=== PATIENT | female | born 1950 | race Caucasian/White ===

== ENCOUNTER 2020-06-02 06:54 | Observation (INO) | payer MEDICARE, OTHER ==
[~2020-06-02 06:54] MED LIST: Lidocaine 1%/Sod Bicarbonate in NS 8.4% 1 ML Syringe IDERM PRN; Sodium Chloride 0.9% 10 ML Syringe FLUSH PRN
[2020-06-02] MEDS ORDERED: Lidocaine 1% 4 ML ONE (07:04)
[2020-06-02] MEDS ORDERED: Propofol 200 MG/20 ML SDV ONE (07:04)
[2020-06-02] MEDS ORDERED: Rocuronium 50 MG/5 ML Vial ONE (07:06)
[2020-06-02] MEDS ORDERED: fentaNYL 250 MCG/5 ML SDV ONE (07:08)
[2020-06-02] MEDS ORDERED: Midazolam 1 MG/ML 2 ML SDV ONE (07:09)
[2020-06-02] MEDS ORDERED: Bupivacaine 0.5%/EPINEPHrine 1:200,000 50 ML MDV ONE (07:12)
[2020-06-02] MEDS ORDERED: ceFAZolin 1 GM Vial ONE (07:14)
[2020-06-02] MEDS: Lactated Ringers 1,000 ML IV SCH ×3 (07:20→18:28)
--- NOTE | 2020-06-02 07:33 | PCM.PREANE ---
Preanesthetic Assessment - Anesthesia/Transfusion/Family Hx Anesthesia History: Prior Anesthesia Reaction (ZOË) Family History of Anesthesia Reaction: No Transfusion History: No Prior Transfusion(s) - Review of Systems General: No Symptoms Pulmonary: No Symptoms Cardiovascular: No Symptoms Gastrointestinal: No Symptoms Neurological: No Symptoms Other: Reports: None - Physical Assessment NPO Status Date: 06/01/20 NPO Status Time: 22:30 ASA Class: 2 Mental Status: Alert & Oriented x3 Airway Class: Mallampati = 1 Dentition: Reports: Normal Dentition Thyro-Mental Finger Breadths: 3 Mouth Opening Finger Breadths: 3 ROM/Head Extension: Full Lungs: Clear to Auscultation, Normal Respiratory Effort Cardiovascular: Regular Rate, Regular Rhythm - Allergies Allergies/Adverse Reactions: Allergies Allergy/AdvReac Type Severity Reaction Status Date / Time No Known Allergies Allergy Verified 06/01/20 14:11 - Acknowledgements Anesthesia Type Planned: General Anesthesia Pt an Appropriate Candidate for the Planned Anesthesia: Yes Alternatives and Risks of Anesthesia Discussed w Pt/Guardian: Yes Pt/Guardian Understands and Agrees with Anesthesia Plan: Yes PreAnesthesia Questionnaire HEENT History: Reports: Allergic Rhinitis Cardiovascular History: Reports: High Cholesterol Respiratory History: Reports: Asthma, Sleep Apnea (CPAP) Psychiatric History: Reports: Depression Other Hematologic History: hx hep c - Past Surgical History GI Surgical History: Reports: Appendectomy Female Surgical History: Reports: D&C - SUBSTANCE USE Smoking Status *Q: Former Smoker Recreational Drug Use History: No - HOME MEDS Home Medications: Home Meds Cholecalciferol (Vitamin D3) [Vitamin D] 1 tab PO DAILY 06/01/20 [History] Horse [place] Seed [Horse [place]] 1 cap PO DAILY 06/01/20 [History] Milk Thistle 1 tab PO DAILY 06/01/20 [History] Rosuvastatin [Crestor] 5 mg PO DAILY 06/01/20 [History] Vit A/C/E/Zinc/Selenium/Copper [Vision Formula Tablet] 1 tab PO DAILY 06/01/20 [History] buPROPion HCL [Wellbutrin Xl] 150 mg PO DAILY 06/01/20 [History] - CURRENT (IN HOUSE) MEDS Current Meds: Current Medications Lactated Ringer's (Ringers, Lactated) 1,000 mls @ 125 mls/hr IV ASDIRECTED ROD Stop: 06/02/20 23:00 Lidocaine/Sodium Bicarbonate (Buffered Lidocaine 1% In Ns 8.4%) 0.25 ml IDERM ONETIME PRN PRN Reason: Prior to IV Start Stop: 06/02/20 18:00 Sodium Chloride (Saline Flush) 10 ml FLUSH ASDIRECTED PRN PRN Reason: Keep Vein Open Stop: 06/02/20 18:00 Discontinued Medications Bupivacaine HCl/Epinephrine Bitart (Marcaine 0.5%/Epinephrine 1:200,000) Confirm Administered Dose 50 ml .ROUTE .STK-MED ONE Stop: 06/02/20 07:13 Cefazolin Sodium (Ancef) Confirm Administered Dose 2 gm .ROUTE .STK-MED ONE Stop: 06/02/20 07:15 Fentanyl (Sublimaze) Confirm Administered Dose 250 mcg .ROUTE .STK-MED ONE Stop: 06/02/20 07:09 Lidocaine HCl (Xylocaine-Mpf 1%) Confirm Administered Dose 4 mls @ as directed .ROUTE .STK-MED ONE Stop: 06/02/20 07:05 Midazolam HCl (Versed 1 Mg/Ml) Confirm Administered Dose 2 mg .ROUTE .STK-MED ONE Stop: 06/02/20 07:10 Propofol (Diprivan 20 Ml) Confirm Administered Dose 200 mg .ROUTE .STK-MED ONE Stop: 06/02/20 07:05 Rocuronium [place] (Zemuron) Confirm Administered Dose 50 mg .ROUTE .STK-MED ONE Stop: 06/02/20 07:07
[2020-06-02] MEDS ORDERED: Ondansetron 4 MG/2 ML SDV ONE (07:50)
[2020-06-02] MEDS ORDERED: HYDROmorphone 1 MG/ML Syringe ONE (08:27)
[2020-06-02] MEDS ORDERED: fentaNYL 100 MCG/2 ML SDV IVPUSH PRN (08:39)
[2020-06-02] MEDS ORDERED: Ondansetron 4 MG/2 ML SDV IVPUSH PRN (08:39)
[2020-06-02] MEDS ORDERED: oxyCODONE 5 MG Tab PO PRN (09:25)
--- NOTE | 2020-06-02 09:38 | PCM.PRNOTE ---
- Free Text/Narrative Note: Operative Report Operation: laparoscopic cholecystectomy Date: 06/02/2020 Attending Surgeon: Devon Odom MD Indication for Surgery: symptomatic cholelithiasis Preoperative antibiotics: 2 g Ancef IV VTE prophylaxis: SCDs Estimated Blood Loss: 50 cc Findings: mild chronic inflammation. Critical view of safety obtained. There appeared to be a small bile leak at the gallbladder fossa as the gallbladder was taken off the liver. The gallbladder ruptured and bile was spilled during dissection. The field was thoroughly irrigated and suctioned, and surgicel and flowseal were placed at the fossa. A 10 F CHADWICK drain was left in the dissection bed as well. Detailed Report: The patient underwent general endotracheal anesthesia after being placed supine on the operating table and initial timeout. The abdomen was prepped and draped in sterile fashion. A pre-incision timeout was performed confirming the patients identity and the operation to be performed. A Veress needle was inserted into the abdominal cavity below the left costal margin along the mid- clavicular line. The abdomen was insufflated with CO2 to 15 mm Hg. Gas was aspirated below the umbilicus with a syringe in order to ensure safe placement of a 5 mm bladed laparoscopic port. The 5mm 30 degree laparoscope was then inserted and viscera inspected. Two additional 5 mm ports were placed along the right subcostal region under direct vision with the laparoscope, and a 12 mm port was placed at the subxiphoid region. The gallbladder was grasped at the fundus with a locking grasper and retracted anteriorly and superiorly, exposing the infundibulum. An additional 5 mm port was placed to help hold the omentum out of view. The gallbladder appeared to be large with some chronic inflammatory change. The infundibulum was grasped with the surgeons left hand grasper and retracted laterally. The hook electrode was used to open the overlying periton eum, and this plane of dissection was developed along the edges of the gallbladder at its interface with the liver bed. A combination of hook electrode, blunt dissection with the suction hat band attacher and the [place] grasper were used to carefully expose and skeletonize the cystic duct and artery. A critical view of safety was obtained. Hemolock clips were then placed on both structures. The duct and artery were transected with laparoscopic scissors between the hemolock clips. The hook was then used to dissect the gallbladder free from its attachment to the liver. This part of dissection was challenging as the gallbladder was partially intrahepatic. A small bile leak was noted from the fossa; this did not appear to be associated with a major duct. The gallbladder ruptured at the mid body during dissection and thick, dark bile was spilled. Once the gallbladder was detached, the specimen was then placed in an Endocatch bag and removed through the subxiphoid port. The liver bed thoroughly irrigated and suctioned. Monopolar was used to achieve hemostasis at sites of hemorrhage. Surgicel and flowseal were applied at the fossa, and a 10 F chadwick drain was left in the dissection bed and brought out through the right lateral-most port. The larger subxiphoid port was closed at the level of the fascia with vicryl suture using the PMI laparoscopic suture passer. Pneumoperitoneum was then released. All skin incisions were then closed with placement of subcuticular vicryl suture and dressed with dermabond. A total of 30 cc 0.5% marcaine with epinephrine was used for local anesthesia at the incision sites. The drain was secured at the skin with a silk suture. The patient tolerated the operation well, was extubated in the operating room and transferred to the PACU for routine post-anesthesia care.
--- NOTE | 2020-06-02 09:39 | PCM.POSTAN ---
POST ANESTHESIA ASSESSMENT - MENTAL STATUS Mental Status: Alert, Oriented - VITAL SIGNS Vital Signs: Last Vital Signs Temp 36.4 C 06/02/20 07:05 Pulse 57 L 06/02/20 07:05 Resp 14 06/02/20 07:05 BP 115/54 L 06/02/20 07:05 Pulse Ox 96 06/02/20 07:05 - RESPIRATORY Respiratory Status: Respiratory Rate WNL, Airway Patent, O2 Saturation Stable - CARDIOVASCULAR CV Status: Pulse Rate WNL, Blood Pressure Stable - GASTROINTESTINAL GI Status: No Symptoms - PAIN Pain Score: 0 - POST OP HYDRATION Hydration Status: Adequate & Stable
[2020-06-02] MEDS: HYDROmorphone 0.5 MG/0.5 ML Syringe IVPUSH ONE ×2 (10:04→11:15)
[2020-06-02] MEDS ORDERED: Metoclopramide 10 MG/2 ML SDV IVPUSH ONE (10:13)
--- NOTE | 2020-06-02 10:15 | PCM48HPAN ---
Post Anesthesia Note - EVALUATION WITHIN 48HRS OF ANESTHETIC Vital Signs in Normal Range: Yes Patient Participated in Evaluation: Yes Respiratory Function Stable: Yes Airway Patent: Yes Cardiovascular Function Stable: Yes Hydration Status Stable: Yes Pain Control Satisfactory: Yes (controlled with dilaudid) Nausea and Vomiting Control Satisfactory: Yes Mental Status Recovered: Yes Vital Signs: Last Vital Signs Temp 36.4 C 06/02/20 07:05 Pulse 57 L 06/02/20 07:05 Resp 14 06/02/20 07:05 BP 115/54 L 06/02/20 07:05 Pulse Ox 96 06/02/20 07:05
[2020-06-02] MEDS ORDERED: HYDROmorphone 0.5 MG/0.5 ML Syringe ONE (11:13)
[2020-06-02] MEDS ORDERED: HYDROmorphone 0.5 MG/0.5 ML Syringe IVPUSH ONE (11:14)
--- NOTE | 2020-06-02 11:23 | PCM.PRNOTE ---
- Free Text/Narrative Note: Date: 06/02/2020 Procedure: screening colonoscopy Endoscopist: Devon Odom MD Findings: Ileocecal valve visualized. Prep was excellent. Multiple small polyps identified. Detailed Report: The patient was taken to the endoscopy suite and placed in left lateral decubitus position. Time out was performed and monitored anesthesia care was initiated. The anus appeared normal. Digital rectal exam was unremarkable. The lubricated colonoscope was then inserted and advanced all the way to the cecum. The ileocecal valve was visualized. The prep was noted to be excellent. On slow withdrawal of the scope, mucosal surfaces were carefully inspected. Along the length of the colon, a few small polyps were identified and biopsied with forceps. Tissue bases were fulgurated. A total of seven polyps, all less than 1 cm, were removed. No diverticular disease or hemorrhoids noted. The patient tolerated the procedure well.
[2020-06-02] MEDS: Morphine 2 MG/ML SYRINGE IVPUSH PRN ×2 (16:54→22:14)
[2020-06-02] MEDS: Acetaminophen 325 MG Tab PO SCH ×2 (17:02→18:20)
[2020-06-02] MEDS ORDERED: Calcium Carbonate 500 MG Tab.Chew PO PRN (22:08)
[2020-06-03] MEDS: Lactated Ringers 1,000 ML IV SCH ×2 (00:36→14:21)
[2020-06-03] MEDS: Acetaminophen 325 MG Tab PO SCH ×2 (01:43→16:41)
--- NOTE | 2020-06-03 07:38 | PCM.SN.2 ---
- Free Text/Narrative Note: POD 1 s/p laparoscopic cholecystectomy complicated by bile leak S: feeling better, no acute events overnight. 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 P: MRCP this morning to define biliary anatomy and site of bile duct injury. Patient may require ERCP with stenting depending on the nature of the injury.
[2020-06-03] MEDS ORDERED: Ketorolac 15 MG/ML SDV IVPUSH PRN (07:45)
[2020-06-03] MEDS: Ketorolac 15 MG/ML SDV IVPUSH PRN ×2 (08:00→14:20)
[2020-06-03] MEDS ORDERED: buPROPion 150 MG Tab.ER PO SCH (09:00)
[2020-06-03] MEDS ORDERED: BUPROPION 150 MG PO SCH (09:00)
[2020-06-03] MEDS ORDERED: Rosuvastatin 10 MG Tab PO SCH (09:00)
--- NOTE | 2020-06-03 12:51 | NM ---
Biliary HIDA scan Technique: 3.4 mCi of technetium 99m mebrofenin was given intravenously. Scintigraphic imaging then obtained over the upper abdomen. Findings: Collection of tracer seen within the gallbladder fossa. Small amount of tracer extends along the inferior edge of the liver. Findings are suspicious for biliary leak. Bowel activity is seen which is normal. Impression: 1. Findings as noted above suspicious for biliary leak. Diagnostic code #3 This report was dictated in MDT
[2020-06-03] MEDS ORDERED: ROSUVASTATIN 5 MG PO SCH (21:00)
== END 2020-06-03 15:00 ==
LOC: JD.SDS 06:54 → JD.OB 10:00 → JD.SDS 22:02 → JD.OB 22:03
PROVIDERS: ADMIT Surgery; ATTEND Surgery
DX: K80.10 Calculus of gallbladder with chronic cholecystitis without obstruction (principal); E78.00 Pure hypercholesterolemia, unspecified; G47.30 Sleep apnea, unspecified; F32.9 Major depressive disorder, single episode, unspecified; E66.3 Overweight; Z79.899 Other long term (current) drug therapy; Z87.891 Personal history of nicotine dependence; Z68.41 Body mass index [BMI] 40.0-44.9, adult
CPT/HCPCS: 36415; 47562; 78226; 80053; 82248; 85025; 96361; 96374; 96375; 96376; A9270; A9537; G0378; J0690; J1170; J1885; J2001; J2250; J2270; J2405; J2704; J2765; J3010; J3490; J7120; 00790

== ENCOUNTER 2020-06-14 12:31 | Emergency (ER) | payer MEDICARE, OTHER ==
[2020-06-14] MEDS ORDERED: Lactated Ringers 1,000 ML ONE (12:51)
[2020-06-14] MEDS ORDERED: Lactated Ringers 1,000 ML IV ONE (12:58)
[2020-06-14] MEDS ORDERED: Piperacillin/Tazobactam 4.5 GM in Sodium Chloride 0.9% 100 ML IV ONE (13:10)
--- NOTE | 2020-06-14 13:12 | EDM.PDOC ---
ED HPI GENERAL MEDICAL PROBLEM - General Chief Complaint: General Stated Complaint: [facility] Time Seen by Provider: 06/14/20 12:40 - History of Present Illness INITIAL COMMENTS - FREE TEXT/NARRATIVE: 69-year-old female presents the emergency room with fever and feeling very poor. The patient was doing good until this morning when she started to feel poor she noticed she was running a fever. Patient has a significant past history of a laparoscopic cholecystectomy done on the of this last month nearly 2 weeks ago. The patient was doing well when she awoke this morning but then her situation rapidly deteriorated. Her last COVID test was the day of the surgery and then she had one prior both of these were negative. The patient is treated for hypothyroid hyperlipidemia and has a history of sleep apnea. No history of coronary artery disease no history of diabetes. 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 Musculoskeletal History: Reports: None Neurological History: Reports: None Psychiatric History: Reports: Depression Endocrine/Metabolic History: Reports: Hypothyroidism, Obesity/BMI 30+ Other Hematologic History: hx hep c Immunologic History: Reports: None Oncologic (Cancer) History: Reports: None Dermatologic History: Reports: None - Infectious Disease History Infectious Disease History: Reports: Hepatitis C - Past Surgical History GI Surgical History: Reports: Appendectomy, Cholecystectomy, ERCP Female Surgical History: Reports: D&C Social & Family History - Family History Family Medical History: Noncontributory - Tobacco Use Smoking Status *Q: Never Smoker - Caffeine Use Caffeine Use: Reports: None - Recreational Drug Use Recreational Drug Use: No ED ROS GENERAL - Review of Systems Review Of Systems: See Below Constitutional: Reports: Fever HEENT: Reports: No Symptoms Respiratory: Reports: No Symptoms Cardiovascular: Reports: No Symptoms Endocrine: Reports: No Symptoms GI/Abdominal: Reports: No Symptoms : Reports: No Symptoms Skin: Reports: No Symptoms Neurological: Reports: No Symptoms ED EXAM, GENERAL - Physical Exam Exam: See Below Exam Limited By: No Limitations General Appearance: Alert, No Apparent Distress Eye Exam: Bilateral Eye: Normal Inspection Ears: Normal External Exam, Normal Canal, Hearing Grossly Normal, Normal TMs Nose: Normal Inspection, Normal Mucosa, No Blood Throat/Mouth: Normal Inspection, Normal Lips, Normal Teeth, Normal Gums, Normal Oropharynx, Normal Voice, No Airway Compromise Head: Atraumatic, Normocephalic Neck: Normal Inspection, Supple, Non-Tender, Full Range of Motion. No: Lymphadenopathy (L), Lymphadenopathy (R) Respiratory/Chest: No Respiratory Distress, Lungs Clear, Normal Breath Sounds Cardiovascular: No Edema, Tachycardia GI/Abdominal: Normal Bowel Sounds, Soft, Other (Exam limited with her obesity but really no significant tenderness surgical sites appear to be healing well no exudate drainage or redness appreciated) Back Exam: Normal Inspection. No: CVA Tenderness (L), CVA Tenderness (R) Extremities: Normal Inspection, No Pedal Edema Neurological: Alert, Oriented, Normal Cognition, Slow to Respond (Minimally so). No: Disoriented, Unresponsive Skin Exam: Warm, Dry, Intact Course - Vital Signs Last Recorded V/S: Last Vital Signs Temp 37.7 C 06/14/20 12:36 Pulse 127 H 06/14/20 12:36 Resp 20 06/14/20 12:36 BP 103/79 06/14/20 12:36 Pulse Ox 89 L 06/14/20 12:36 - Orders/Labs/Meds Orders: Active Orders 24 hr Category Date Time Status CULTURE BLOOD [BC] Stat Lab 06/14/20 13:30 Received CULTURE BLOOD [BC] Stat Lab 06/14/20 13:40 Received Norepinephrine [Levophed] 4 mg Med 06/14/20 13:45 Active Dextrose 5% in Water 246 ml IV TITRATE Pharmacy to Dose - Vancomycin Med 06/14/20 13:11 Active 1 dose .XX ONETIME PRN Sodium Chloride 0.9% [Normal Saline] 100 ml Med 06/14/20 14:45 Active IV ASDIRECTED Sodium Chloride 0.9% [Saline Flush] Med 06/14/20 14:31 Active 10 ml FLUSH ONETIME PRN Blood Culture x2 Reflex Set [OM.PC] Stat Oth 06/14/20 12:54 Ordered Medication Orders Norepinephrine Bitartrate 4 mg (/ Dextrose/Water) 250 mls @ 7.5 mls/hr IV TITRATE ROD; Protocol Last Admin: 06/14/20 13:46 Dose: 4 mcg/min, 15 mls/hr Documented by: ODETTE Sodium Chloride (Normal Saline) 100 mls @ 75 mls/hr IV ASDIRECTED ROD Sodium Chloride (Saline Flush) 10 ml FLUSH ONETIME PRN PRN Reason: IV FLUSH Vancomycin HCl (Pharmacy To Dose - Vancomycin) 1 dose .XX ONETIME PRN PRN Reason: RX TO DOSE Vanco Labs: Laboratory Tests 06/14/20 06/14/20 06/14/20 Range/Units 12:45 12:45 12:45 WBC 4.45 (3.98-10.04) K/mm3 RBC 5.02 (3.98-5.22) M/mm3 Hgb 15.3 (11.2-15.7) gm/dl Hct 46.1 H (34.1-44.9) % MCV 91.8 (79.4-94.8) fl MCH 30.5 (25.6-32.2) pg MCHC 33.2 (32.2-35.5) g/dl RDW Std Deviation 43.3 (36.4-46.3) fL Plt Count 292 (182-369) K/mm3 MPV 9.4 (9.4-12.3) fl Neutrophils % (Manual) 87 H (40-60) % Band Neutrophils % 0 (0-10) % Lymphocytes % (Manual) 12 L (20-40) % Atypical Lymphs % 0 % Monocytes % (Manual) 1 L (2-10) % Eosinophils % (Manual) 0 L (0.7-5.8) % Basophils % (Manual) 0 L (0.1-1.2) Platelet Estimate Adequate RBC Morph Comment Normal D-Dimer, Quantitative (0.19-0.50) mg/L Sodium 135 L (136-145) mEq/L Potassium 4.0 (3.5-5.1) mEq/L Chloride 99 (98-107) mEq/L Carbon Dioxide 21 (21-32) mEq/L Anion Gap 19.0 H (5-15) BUN 17 (7-18) mg/dL Creatinine 1.6 H (0.55-1.02) mg/dL Est Cr Clr Drug Dosing 28.22 mL/min Estimated GFR (MDRD) 32 (>60) mL/min BUN/Creatinine Ratio 10.6 L (14-18) Glucose 115 (80-115) mg/dL Lactic Acid 4.2 H* (0.4-2.0) mmol/L Calcium 10.0 (8.5-10.1) mg/dL Ferritin (8-252) ng/ml Total Bilirubin 1.1 H (0.2-1.0) mg/dL AST 78 H (15-37) U/L ALT 82 H (14-59) U/L Alkaline Phosphatase 255 H (46-116) U/L Lactate Dehydrogenase 463 H (81-234) U/L C-Reactive Protein (<1.0) mg/dL NT-Pro-B Natriuret Pep (0-125) pg/mL Total Protein 8.3 H (6.4-8.2) g/dl Albumin 3.1 L (3.4-5.0) g/dl Globulin 5.2 gm/dL Albumin/Globulin Ratio 0.6 L (1-2) Urine Color (Yellow) Urine Appearance (Clear) Urine pH (5.0-8.0) Ur Specific [place] (1.005-1.030) Urine Protein (Negative) Urine Glucose (UA) (Negative) Urine Ketones (Negative) Urine Occult Blood (Negative) Urine Nitrite (Negative) Urine Bilirubin (Negative) Urine Urobilinogen (0.2-1.0) Ur Leukocyte Esterase (Negative) Urine RBC (0-5) /hpf Urine WBC (0-5) /hpf Ur Squamous Epith Cells (0-5) /hpf Amorphous Sediment (NOT SEEN) /hpf Urine Bacteria (FEW) /hpf Urine Mucus (FEW) /hpf Mycoplasma pneumon IgM Negative (NEGATIVE) SARS Virus RNA (PCR) (NEGATIVE) 06/14/20 06/14/20 06/14/20 Range/Units 12:45 12:45 12:45 WBC (3.98-10.04) K/mm3 RBC (3.98-5.22) M/mm3 Hgb (11.2-15.7) gm/dl Hct (34.1-44.9) % MCV (79.4-94.8) fl MCH (25.6-32.2) pg MCHC (32.2-35.5) g/dl RDW Std Deviation (36.4-46.3) fL Plt Count (182-369) K/mm3 MPV (9.4-12.3) fl Neutrophils % (Manual) (40-60) % Band Neutrophils % (0-10) % Lymphocytes % (Manual) (20-40) % Atypical Lymphs % % Monocytes % (Manual) (2-10) % Eosinophils % (Manual) (0.7-5.8) % Basophils % (Manual) (0.1-1.2) Platelet Estimate RBC Morph Comment D-Dimer, Quantitative > 35.20 H (0.19-0.50) mg/L Sodium (136-145) mEq/L Potassium (3.5-5.1) mEq/L Chloride (98-107) mEq/L Carbon Dioxide (21-32) mEq/L Anion Gap (5-15) BUN (7-18) mg/dL Creatinine (0.55-1.02) mg/dL Est Cr Clr Drug Dosing mL/min Estimated GFR (MDRD) (>60) mL/min BUN/Creatinine Ratio (14-18) Glucose (80-115) mg/dL Lactic Acid (0.4-2.0) mmol/L Calcium (8.5-10.1) mg/dL Ferritin 2040 H (8-252) ng/ml Total Bilirubin (0.2-1.0) mg/dL AST (15-37) U/L ALT (14-59) U/L Alkaline Phosphatase (46-116) U/L Lactate Dehydrogenase (81-234) U/L C-Reactive Protein (<1.0) mg/dL NT-Pro-B Natriuret Pep 148 H (0-125) pg/mL Total Protein (6.4-8.2) g/dl Albumin (3.4-5.0) g/dl Globulin gm/dL Albumin/Globulin Ratio (1-2) Urine Color (Yellow) Urine Appearance (Clear) Urine pH (5.0-8.0) Ur Specific [place] (1.005-1.030) Urine Protein (Negative) Urine Glucose (UA) (Negative) Urine Ketones (Negative) Urine Occult Blood (Negative) Urine Nitrite (Negative) Urine Bilirubin (Negative) Urine Urobilinogen (0.2-1.0) Ur Leukocyte Esterase (Negative) Urine RBC (0-5) /hpf Urine WBC (0-5) /hpf Ur Squamous Epith Cells (0-5) /hpf Amorphous Sediment (NOT SEEN) /hpf Urine Bacteria (FEW) /hpf Urine Mucus (FEW) /hpf Mycoplasma pneumon IgM (NEGATIVE) SARS Virus RNA (PCR) (NEGATIVE) 06/14/20 06/14/20 06/14/20 Range/Units 12:45 12:56 15:04 WBC (3.98-10.04) K/mm3 RBC (3.98-5.22) M/mm3 Hgb (11.2-15.7) gm/dl Hct (34.1-44.9) % MCV (79.4-94.8) fl MCH (25.6-32.2) pg MCHC (32.2-35.5) g/dl RDW Std Deviation (36.4-46.3) fL Plt Count (182-369) K/mm3 MPV (9.4-12.3) fl Neutrophils % (Manual) (40-60) % Band Neutrophils % (0-10) % Lymphocytes % (Manual) (20-40) % Atypical Lymphs % % Monocytes % (Manual) (2-10) % Eosinophils % (Manual) (0.7-5.8) % Basophils % (Manual) (0.1-1.2) Platelet Estimate RBC Morph Comment D-Dimer, Quantitative (0.19-0.50) mg/L Sodium (136-145) mEq/L Potassium (3.5-5.1) mEq/L Chloride (98-107) mEq/L Carbon Dioxide (21-32) mEq/L Anion Gap (5-15) BUN (7-18) mg/dL Creatinine (0.55-1.02) mg/dL Est Cr Clr Drug Dosing mL/min Estimated GFR (MDRD) (>60) mL/min BUN/Creatinine Ratio (14-18) Glucose (80-115) mg/dL Lactic Acid (0.4-2.0) mmol/L Calcium (8.5-10.1) mg/dL Ferritin (8-252) ng/ml Total Bilirubin (0.2-1.0) mg/dL AST (15-37) U/L ALT (14-59) U/L Alkaline Phosphatase (46-116) U/L Lactate Dehydrogenase (81-234) U/L C-Reactive Protein 19.6 H* (<1.0) mg/dL NT-Pro-B Natriuret Pep (0-125) pg/mL Total Protein (6.4-8.2) g/dl Albumin (3.4-5.0) g/dl Globulin gm/dL Albumin/Globulin Ratio (1-2) Urine Color Yellow (Yellow) Urine Appearance Clear (Clear) Urine pH 6.0 (5.0-8.0) Ur Specific [place] 1.025 (1.005-1.030) Urine Protein 2+ H (Negative) Urine Glucose (UA) Negative (Negative) Urine Ketones Trace H (Negative) Urine Occult Blood Negative (Negative) Urine Nitrite Negative (Negative) Urine Bilirubin Negative (Negative) Urine Urobilinogen 0.2 (0.2-1.0) Ur Leukocyte Esterase Negative (Negative) Urine RBC Not seen (0-5) /hpf Urine WBC 0-5 (0-5) /hpf Ur Squamous Epith Cells 5-10 H (0-5) /hpf Amorphous Sediment Many H (NOT SEEN) /hpf Urine Bacteria Few (FEW) /hpf Urine Mucus Rare (FEW) /hpf Mycoplasma pneumon IgM (NEGATIVE) SARS Virus RNA (PCR) Negative (NEGATIVE) Meds: Medications Generic Name Dose Route Start Last Admin Trade Name Freq PRN Reason Stop Dose Admin Norepinephrine Bitartrate 4 mg 250 mls @ 7.5 mls/hr 06/14/20 13:45 06/14/20 13:46 / Dextrose/Water IV 4 mcg/min TITRATE ROD 15 mls/hr Administration Protocol 2 MCG/MIN Sodium Chloride 100 mls @ 75 mls/hr 06/14/20 14:45 Normal Saline IV ASDIRECTED ROD Sodium Chloride 10 ml 06/14/20 14:31 Saline Flush FLUSH ONETIME PRN IV FLUSH Vancomycin HCl 1 dose 06/14/20 13:11 Pharmacy To Dose - Vancomycin .XX ONETIME PRN RX TO DOSE Vanco Discontinued Medications Generic Name Dose Route Start Last Admin Trade Name Freq PRN Reason Stop Dose Admin Lactated Ringer's Confirm 06/14/20 12:51 06/14/20 12:57 Ringers, Lactated Administered 06/14/20 12:52 Not Given Dose 1,000 mls @ as directed .ROUTE .STK-MED ONE Lactated Ringer's 1,000 mls @ 999 mls/hr 06/14/20 12:58 06/14/20 12:59 Ringers, Lactated IV 06/14/20 13:58 999 mls/hr .BOLUS ONE Administration Piperacillin Sod/Tazobactam 100 mls @ 200 mls/hr 06/14/20 13:10 06/14/20 13:43 Sod 4.5 gm/ Sodium Chloride IV 06/14/20 13:39 200 mls/hr ONETIME ONE Administration Vancomycin HCl 1 gm/ 500 mls @ 250 mls/hr 06/14/20 14:00 Vancomycin HCl 500 mg/ Sodium IV 06/14/20 15:59 Chloride ONETIME ONE Lactated Ringer's 600 mls @ 999 mls/hr 06/14/20 13:44 06/14/20 14:13 Ringers, Lactated IV 06/14/20 14:20 Infused .BOLUS ONE Infusion Iopamidol 100 ml 06/14/20 14:31 Isovue-370 (76%) IVPUSH 06/14/20 14:32 ONETIME ONE - Re-Assessments/Exams Free Text/Narrative Re-Assessment/Exam: 06/14/20 15:46 Patient appears to be in sepsis she was initially bolused on some fluid Levophed was started after about 1100 or 1200 cc of LR she did well with this bringing her MAPs and much more acceptable range, into the 70s. These dropped when she was taken to CT for a CTA and abdominal pelvic CT with IV contrast using the same contrast load for both studies. Her d-dimer was quite elevated more so than could be explained postoperatively. The possibility of coronavirus was considered. Her lactic acid is 4.3, ferritin is over 2000, and C-reactive protein is elevated. CTs did show a fluid collection containing air within the gallbladder fossa radiology believe this is more likely to be an abscess rather than a bili Jamila and there was an area on the liver possibly consistent with an early liver infection right next to the gallbladder fossa. Dr. Lugo was consulted to start a central line as the patient has poor IV access. The case was discussed with Dr. 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 No available beds in [place] where they have IR and our ICU is full. Flight crew is here awaiting central line placement. Departure - Departure Time of Disposition: 15:50 Disposition: DC/Tfer to [facility] 02 Clinical Impression: Intra-abdominal abscess, Sepsis - Discharge Information Referrals: Lucinda Villa MD [Primary Care Provider] - Forms: ED Department Discharge Sepsis Event Note (ED) - Evaluation Sepsis Screening Result: Possible Sepsis Risk - Focused Exam Vital Signs: Vital Signs Temp Pulse Resp BP Pulse Ox 06/14/20 12:36 37.7 C 127 H 20 103/79 89 L - My Orders Last 24 Hours: My Active Orders 06/14/20 12:54 Blood Culture x2 Reflex Set [OM.PC] Stat 06/14/20 13:11 Pharmacy to Dose - Vancomycin 1 dose .XX ONETIME PRN 06/14/20 13:30 CULTURE BLOOD [BC] Stat 06/14/20 13:40 CULTURE BLOOD [BC] Stat 06/14/20 13:45 Norepinephrine [Levophed] 4 mg Dextrose 5% in Water 246 ml IV TITRATE 06/14/20 14:31 Sodium Chloride 0.9% [Saline Flush] 10 ml FLUSH ONETIME PRN 06/14/20 14:45 Sodium Chloride 0.9% [Normal Saline] 100 ml IV ASDIRECTED - Assessment/Plan Last 24 Hours: My Active Orders 06/14/20 12:54 Blood Culture x2 Reflex Set [OM.PC] Stat 06/14/20 13:11 Pharmacy to Dose - Vancomycin 1 dose .XX ONETIME PRN 06/14/20 13:30 CULTURE BLOOD [BC] Stat 06/14/20 13:40 CULTURE BLOOD [BC] Stat 06/14/20 13:45 Norepinephrine [Levophed] 4 mg Dextrose 5% in Water 246 ml IV TITRATE 06/14/20 14:31 Sodium Chloride 0.9% [Saline Flush] 10 ml FLUSH ONETIME PRN 06/14/20 14:45 Sodium Chloride 0.9% [Normal Saline] 100 ml IV ASDIRECTED
--- NOTE | 2020-06-14 13:20 | CR ---
Chest: Portable view of the chest was obtained. Comparison: No previous chest imaging. Heart size and mediastinum are normal. Lungs are clear with no acute parenchymal change. Bony structures are grossly intact. Impression: 1. Nothing acute is seen on portable chest x-ray. Diagnostic code #1 Study was dictated in MDT
[2020-06-14] MEDS ORDERED: Lactated Ringers 600 ML IV ONE (13:44)
[2020-06-14] MEDS ORDERED: Norepinephrine 4 MG in Dextrose 5% in Water 246 ML IV SCH ×2 (13:45)
[2020-06-14] MEDS ORDERED: Vancomycin 1 GM, Vancomycin 500 MG in Sodium Chloride 0.9% 500 ML IV ONE (14:00)
[2020-06-14] MEDS ORDERED: Iopamidol 755 Mg/ML 100 ML Bottle IVPUSH ONE (14:31)
[2020-06-14] MEDS ORDERED: Sodium Chloride 0.9% 10 ML Syringe FLUSH PRN (14:31)
[2020-06-14] MEDS ORDERED: Sodium Chloride 0.9% 100 ML IV SCH (14:45)
--- NOTE | 2020-06-14 15:15 | CT ---
CT chest Technique: Multiple axial sections were obtained from above the lung apices inferiorly through the lung bases. Intravenous contrast was utilize study performed as a pulmonary angiogram protocol. Findings: Aorta shows no aneurysm or dissection. Pulmonary arteries are not optimally opacified but show no filling defects within the main or segmental branches to indicate pulmonary embolism. Smaller subsegmental pulmonary emboli could be missed. There is fluid being seen within the esophagus compatible with reflux. No pericardial thickening is seen. Mediastinum shows small lymph nodes believed to be within normal lungs show no acute parenchymal change. Bone window settings were reviewed which shows no acute osseous finding. Scattered degenerative change is noted throughout the spine. Impression: 1. Slightly less than optimal opacification of the pulmonary arteries. Pulmonary arteries show no evidence of pulmonary emboli within the main or segmental branches. Smaller subsegmental pulmonary emboli could be missed. 2. Aorta shows no aneurysm or dissection. 3. Nothing acute is seen within the chest. 4. Fluid within the esophagus compatible with reflux. Diagnostic code #2 Study was dictated in MDT
--- NOTE | 2020-06-14 15:15 | CT ---
CT abdomen and pelvis Technique: Multiple axial sections were obtained from above the dome of the diaphragm inferiorly through the pubic symphysis. Intravenous contrast was utilized. No oral contrast was given. Delayed images were obtained through the abdomen and pelvis. Reconstructed coronal and sagittal images were obtained. Findings: Fluid collection is seen containing air in the region of the gallbladder fossa. This finding measures 8.0 cm x 6.3 cm. Differential includes biloma as well as abscess. Inflammatory change is seen around this area which makes this more likely due to abscess. There is a stent being seen within the CHD. Vague low density is noted within the liver next to the gallbladder fossa and difficult to exclude early liver infection. Visualized lung bases show nothing acute. Adrenal glands show no nodule. Spleen is normal. Kidneys show symmetric contrast enhancement without hydronephrosis or mass. Adrenal glands show no nodule. Pancreas shows no abnormality. Aorta shows no aneurysm. No retroperitoneal adenopathy or mesenteric abnormalities are seen. No pelvic mass or adenopathy is seen. Delayed images shows no contrast excretion into the kidneys raise the possibility of dehydration. Bone window settings were reviewed which show no acute osseous finding. Impression: 1. Fluid collection containing air within the gallbladder fossa. This could represent biloma or abscess. Abscess is felt more likely as there is some associated inflammatory change being seen around this abnormality. Size as noted above. 2. Vague area of diminished density within the liver next to the gallbladder fossa raising the possibility of early liver infection. 3. Satisfactory location of a biliary stent within the CHD. 4. No other acute abnormality is appreciated. Diagnostic code #3 Study was dictated in MDT
== END 2020-06-14 16:10 ==
LOC: JD.ED 12:31
DX: A41.9 Sepsis, unspecified organism (principal); K65.1 Peritoneal abscess; E78.00 Pure hypercholesterolemia, unspecified; F32.9 Major depressive disorder, single episode, unspecified; J45.909 Unspecified asthma, uncomplicated; E66.9 Obesity, unspecified; Z68.33 Body mass index [BMI] 33.0-33.9, adult; Z79.899 Other long term (current) drug therapy; Z20.828 Contact with and (suspected) exposure to other viral communicable diseases
CPT/HCPCS: 36415; 71045; 71275; 74177; 80053; 81001; 82728; 83605; 83615; 83880; 85007; 85027; 85379; 86140; 86738; 87040; 87077; 87181; 87184; 87186; 96365; 96366; 96367; 99285; J2543; J7050; J7060; J7120; U0002; 99284